=== PATIENT | female | born 1950 | race Caucasian/White ===

== ENCOUNTER → 2017-01-10 | Outpatient (CLI) | payer BC, MEDICARE ==
[~2017-01-10] MED LIST: DIOVAN HCT 160/1 TAB PO; FLEXERIL10 MG PO; GLIMEPIRIDE2 MG PO; GLUCOPHAGE500 MG PO; JANUVIA PO; LEVOTHROID75 MCG PO; LIPITOR40 MG PO; MOTRIN400 MG PO; PANTOPRAZOLE SO40 MG PO; PRANDIN1 MG PO; SYNTHROID PO; VICODIN 5/1 TAB 5/50 PO; VITAMIN D50000 UNIT PO
--- NOTE | ~2017-01-10 | MY11 ---
[facility] A Service of [facility] RADIOLOGY TEXT RESULTS PATIENT: GOPAL CONNOR LOCATION: [facility] : 48 UNIT #: [id number] AGE: [address]: Ngozi Fuentes APRN SEX: F ORDER DR: [id number] [place], [place] [address] [id number] O MR#: [id number] Acc #: [id number] NAME: GOPAL CONNOR : 1950 SEX: F STUDY DATE/TIME: 01/10/2017 10:30 UNIT: [facility] ROOM: STUDY DESCRIPTION: MY Mammogram Screening Dig Rocco Attending Physician: Ngozi Fuentes A.P.R.N. Ordering Physician: Ngozi Fuentes A.P.R.N. Primary Care Physician: Ngozi Fuentes A.P.R.N. MEDICAL IMAGING REPORT This report is preliminary unless electronic signature is present EXAM Bilateral digital screening mammogram with CAD 01/10/2017 INDICATIONS 66-year-old female for routine screening. No reported problems and no personal or family history of breast cancer. History of breast reduction bilaterally in 2006. TECHNIQUE CC and MLO views of the breast were obtained and reviewed with a FDA-approved CAD device. COMPARISON 01/08/2016, 01/06/2015, 09/20/2013. FINDINGS Breast parenchyma is composed of scattered fibroglandular densities. The pattern is unchanged. There is no new dominant nodule or mass in either breast. No new suspicious clustered microcalcifications. Benign calcifications are present. Faint benign-appearing nodularity, unchanged. IMPRESSION 1. Benign screening mammogram, 1 year followup recommended. BIRADS: 2 Benign Finding. Patients over the age of 40 are entered into a reminder system with target due date for the next mammogram. A result letter will also be sent to the patient. Dictated by... [facility] A Service of [facility] RADIOLOGY TEXT RESULTS PATIENT: GOPAL CONNOR LOCATION: [facility] : 48 UNIT #: [id number] AGE: [address]: Ngozi Fuentes APRN SEX: F ORDER DR: Beny Mcnally M.D. THIS IS AN ELECTRONICALLY VERIFIED REPORT Beny Mcnally M.D. at 01/13/2017 7:30 AM HONG/liya TD: 01/10/2017 17:59 JOB #: [id number] MEDICAL IMAGING REPORT Page 1 of 1 COPY
== END | disposition home or self-care (01) ==
LOC: CWCC 09:57
DX: Z12.31 Encounter for screening mammogram for malignant neoplasm of breast (principal)
CPT/HCPCS: G0202

== ENCOUNTER → 2017-05-02 | Outpatient (CLI) | payer MEDICARE, BC ==
--- NOTE | ~2017-05-02 | US77 ---
[facility] A Service of [facility] RADIOLOGY TEXT RESULTS PATIENT: GOPAL CONNOR LOCATION: [facility] : 48 UNIT #: [id number] AGE: [address]: Ngozi Fuentes APRN SEX: F ORDER DR: [id number] [facility] [address] [place], [place] [address] [id number] O MR#: [id number] Acc #: [id number] NAME: GOPAL CONNOR : 1950 SEX: F STUDY DATE/TIME: 05/02/2017 13:47 UNIT: [facility] ROOM: STUDY DESCRIPTION: US Kidney Bilateral Complete Attending Physician: Ngozi Fuentes A.P.R.N. Referring Physician: Ngozi Fuentes A.P.R.N. Ordering Physician: Ngozi Fuentes A.P.R.N. Primary Care Physician: Ngozi Fuentes A.P.R.N. MEDICAL IMAGING REPORT This report is preliminary unless electronic signature is present EXAM Renal ultrasound INDICATIONS Flank pain for 6 months. TECHNIQUE Gloria-scale and color Doppler sonographic images were obtained through the kidneys and bladder. FINDINGS No hydronephrosis is identified in either kidney. No solid or cystic renal masses are seen and the bladder appears unremarkable. IMPRESSION No acute disease Dictated by... Kristen Bethea M.D. THIS IS AN ELECTRONICALLY VERIFIED REPORT Kristen Bethea M.D. at 05/05/2017 4:54 PM AFF/rnr TD: 05/02/2017 22:40 JOB #: [id number] MEDICAL IMAGING REPORT Page 1 of 1 COPY
== END | disposition home or self-care (01) ==
LOC: CWCC 12:59
DX: R10.9 Unspecified abdominal pain (principal)
CPT/HCPCS: 76770